=== PATIENT | male | born 1995 | race Caucasian/White ===

== ENCOUNTER 2019-01-18 11:54 | Emergency (ER) | payer OTHER ==
[2019-01-18 12:10] VITALS: BP 142/71
--- NOTE | 2019-01-18 12:23 | ED Physician Documentation ---
PD HPI LOWER EXT INJURY - Stated complaint Stated Complaint: R ANKLE INJ - Chief complaint Chief Complaint: Trauma Ext - History obtained from History obtained from: Patient - History of Present Illness PD HPI LOW EXT INJURY LOCATION: Right, Ankle Type of injury: Twist Where injury occurred: Other (PT yesterday) Timing - onset: Yesterday Timing - details: Abrupt onset Worsened by: Other (walking) Associated symptoms: Swelling Contributing factors: No: Prior ortho surgery Review of Systems Constitutional: reports: Reviewed and negative Cardiac: reports: Reviewed and negative Respiratory: reports: Reviewed and negative PD PAST MEDICAL HISTORY - Present Medications Home Medications: Ambulatory Orders Medication Instructions Recorded Confirmed Ibuprofen [Motrin] 800 mg PO Q8H PRN #30 tablet 01/18/19 - Allergies Allergies/Adverse Reactions: Allergies Allergy/AdvReac Type Severity Reaction Status Date / Time minocycline Allergy Anaphylaxis Verified 01/18/19 12:10 PD ED PE NORMAL - Vitals Vital signs reviewed: Yes - General General: Alert and oriented X 3, No acute distress - Extremities Extremities: Other (Right leg, no proximal fibular tenderness. There is tenderness that is significant over the lateral malleolus, not the medial malleolus. Not so much the ATFL. No foot tenderness, no calcaneal or Achilles tenderness.) - Neuro Neuro: Alert and oriented X 3, Normal speech Results - Vitals Vitals: Vital Signs - 24 hr 01/18/19 12:08 Temperature 36.7 C Heart Rate 91 Respiratory 14 Rate Blood Pressure 142/71 H O2 Saturation 100 Oxygen O2 Source Room air Departure - Departure Disposition: 01 Home, Self Care Clinical Impression: Right ankle sprain Qualifiers: Encounter type: initial encounter Involved ligament of ankle: anterior talofibular ligament Qualified Code(s): S93.491A - Sprain of other ligament of right ankle, initial encounter Condition: Good Record reviewed to determine appropriate education?: Yes Instructions: ED Sprain Ankle W X Ray Prescriptions: Ibuprofen [Motrin] 800 mg PO Q8H PRN #30 tablet PRN Reason: PAIN &/OR FEVER Comments: Recheck with your doctor in a week if not better, return for new or worsening symptoms. Ice and elevate. Forms: Activity restrictions
--- NOTE | 2019-01-18 12:58 | XRAY Report ---
Reason: pain/injury yesterday Procedure Date: 01/18/2019 Accession Number: [id number] / [id number] Procedure: XR - Ankle 3 View RT CPT Code: FULL RESULT: EXAM: RIGHT ANKLE RADIOGRAPHY EXAM DATE: 01/18/2019 12:50 PM. CLINICAL HISTORY: Pain/injury yesterday. COMPARISON: None. TECHNIQUE: 3 views. FINDINGS: Bones: No fractures or bone lesions. Joints: Suggestion of joint effusion. No subluxations. The ankle mortise is normally aligned. Soft Tissues: Soft tissue swelling is present. IMPRESSION: 1. No evidence of fracture. 2. Joint effusion and soft tissue swelling noted. [facility]
== END 2019-01-18 13:37 | disposition home or self-care (01) ==
LOC: ED 11:54
DX: S93.402A Sprain of unspecified ligament of left ankle, initial encounter (principal); X50.1XXA Overexertion from prolonged static or awkward postures, initial encounter; Y93.89 Activity, other specified; Y92.538 Other ambulatory health services establishments as the place of occurrence of the external cause
CPT/HCPCS: 99283